=== PATIENT | male | born 1970 | race Caucasian/White ===

== ENCOUNTER → 2021-08-10 09:23 | Outpatient (BNVA) | payer OTHER, SELFPAY | PROVIDERS: Visit Provider Internal Medicine | DX: R76.8 Other specified abnormal immunological findings in serum (principal); M25.50 Pain in unspecified joint; D72.829 Elevated white blood cell count, unspecified; Z11.59 Encounter for screening for other viral diseases; Z11.1 Encounter for screening for respiratory tuberculosis; Z79.899 Other long term (current) drug therapy; F17.210 Nicotine dependence, cigarettes, uncomplicated | CPT/HCPCS: 36415; 99204 ==

== ENCOUNTER 2021-08-10 11:11 | Outpatient (CLI) | payer OTHER, SELFPAY ==
--- NOTE | 2021-08-10 11:22 | XR_ITS ---
WS: [email or web address] Exam: XR foot RT 2V [id number] Date/Time of Exam: 08/10/2021 11:29 AM Reason For Exam: M25.50 - Pain in unspecified joint No fracture or dislocation. Articular relationships are intact. Posterior heel spur. A tiny a length of wire or broken needle identified in the plantar soft tissues of the midfoot. This measures about 4 mm in length and about 1 mm in width. XR/XR foot RT 2V [id number] IMPRESSION: 1. No fracture or dislocation. 2. Small metallic foreign body seen in the plantar soft tissues of the midfoot that probably represents a segment of broken wire or needle fragment.
--- NOTE | 2021-08-10 11:22 | XR_ITS ---
WS: [email or web address] Exam: XR lumbar spine 2-3V* [id number] Date/Time of Exam: 08/10/2021 11:29 AM Reason For Exam: R76.8 - Other specified abnormal immunological findings i... No acute fracture or dislocation. Mild spondylosis. Disc spaces are relatively well maintained. Mild facet DJD. XR/XR lumbar spine 2-3V* 17783 IMPRESSION: 1. No fracture or malalignment. 2. Mild degenerative changes.
--- NOTE | 2021-08-10 11:22 | XR_ITS ---
WS: [email or web address] Exam: XR sacroiliac jts m 3V 70207 Date/Time of Exam: 08/10/2021 11:29 AM Reason For Exam: L40.9 - Psoriasis, unspecified No fracture or dislocation. Moderate DJD of both SI joints. The SI joints are open. No bone destructi on. XR/XR sacroiliac jts m 3V 70448 IMPRESSION: 1. Moderate DJD of both SI joints. No other significant finding.
--- NOTE | 2021-08-10 11:22 | XR_ITS ---
WS: [email or web address] Exam: XR foot LT 2V [id number] Date/Time of Exam: 08/10/2021 11:29 AM Reason For Exam: M25.50 - Pain in unspecified joint No fracture or dislocation. Articular relationships are intact. Small curvilinear soft tissue density seen at the base of the fourth toe could be a foreign body or soft tissue calcification. Posterior h eel spur. XR/XR foot LT 2V 88374 IMPRESSION: 1. No fracture or dislocation. 2. Small curvilinear opacity seen at the base of the fourth toe may represent a soft tissue calcification or foreign body.
--- NOTE | 2021-08-10 11:22 | XR_ITS ---
WS: [email or web address] Exam: XR hand RT 2V [id number] Date/Time of Exam: 08/10/2021 11:29 AM Reason For Exam: R76.8 - Other specified abnormal immunological findings i... Findings: No fractures, soft tissue swelling, or unusual calcifications are noted. The hand shows normal bony alignment. There is no irregularity of the bony architecture. XR/XR hand RT 2V 88189 IMPRESSION: Normal right hand.
--- NOTE | 2021-08-10 11:22 | XR_ITS ---
WS: [email or web address] Exam: XR hand LT 2V 49377 Date/Time of Exam: 08/10/2021 11:29 AM Reason For Exam: R76.8 - Other specified abnormal immunological findings i... Findings: No fractures, soft tissue swelling, or unusual calcifications are noted. The hand shows normal bony alignment. There is no irregularity of the bony architecture. XR/XR hand LT 2V 30313 IMPRESSION: Normal left hand.
== END 2021-08-10 11:12 | disposition home or self-care (01) ==
LOC: RAD 11:18
PROVIDERS: PCP Nurse Practitioner; Visit Provider Internal Medicine
DX: D72.829 Elevated white blood cell count, unspecified (principal); M06.9 Rheumatoid arthritis, unspecified; M25.50 Pain in unspecified joint; R76.8 Other specified abnormal immunological findings in serum; L40.9 Psoriasis, unspecified; Z11.59 Encounter for screening for other viral diseases; Z11.1 Encounter for screening for respiratory tuberculosis
CPT/HCPCS: 72100; 72202; 73120; 73620; 80053; 82306; 82728; 83540; 84155; 84165; 84443; 85025; 86200; 86480; 86617; 86704; 86803; 87340; 87806

== ENCOUNTER → 2022-12-06 15:47 | Outpatient (BNVA) | payer OTHER, SELFPAY | PROVIDERS: PCP Nurse Practitioner; Visit Provider Internal Medicine | DX: R76.8 Other specified abnormal immunological findings in serum (principal); M25.50 Pain in unspecified joint; M54.50 Low back pain, unspecified; M06.9 Rheumatoid arthritis, unspecified; R53.83 Other fatigue | CPT/HCPCS: 36415; 80053; 85025; 85651; 86140 ==

== ENCOUNTER → 2023-04-11 14:37 | Outpatient (BNVA) | payer OTHER, SELFPAY | PROVIDERS: PCP Nurse Practitioner; Visit Provider Internal Medicine | DX: R76.8 Other specified abnormal immunological findings in serum (principal); Z88.5 Allergy status to narcotic agent; M06.9 Rheumatoid arthritis, unspecified; M25.50 Pain in unspecified joint; R53.83 Other fatigue | CPT/HCPCS: 36415; 74018; 80053; 83520; 85025; 85651; 86003; 86008; 86140 ==